=== PATIENT | female | born 1970 | race American Indian/Alaskan Native ===

== ENCOUNTER 2017-01-15 19:22 | Emergency (ER) | payer OTHER ==
[2017-01-15 19:29] VITALS: TEMP 98; BMI 22.6
[2017-01-15] MEDS ORDERED: DiphenhydrAMINE 50 mg/ml Inj IVP ONE (19:51)
[2017-01-15] MEDS ORDERED: Sodium Chloride 0.9% 1,000 ML IV SCH (20:00)
--- NOTE | 2017-01-15 21:04 | CT ---
EXAM: CT Head Without Intravenous Contrast CLINICAL HISTORY: 46 years old, female; Pain; Headache; Headache not specified; Additional info: DEAN TECHNIQUE: Axial computed tomography images of the head/brain without intravenous contrast. This CT exam was performed using one or more of the following dose reduction techniques: automated exposure control, adjustment of the mA and/or kV according to patient size, and/or use of iterative reconstruction technique. COMPARISON: No relevant prior studies available. FINDINGS: Brain: No intracranial hemorrhage. No mass. No definite edema. Ventricles: No hydrocephalus. Bones/joints: No acute fracture. Soft tissues: Unremarkable. Sinuses: No acute sinusitis. Mastoid air cells: No mastoid effusion. Orbits: Unremarkable as visualized. IMPRESSION: 1. No acute intracranial abnormality. 2. Incidental/non-acute findings are described above.
--- NOTE | 2017-01-15 21:06 | ED PDOC ---
Arrival/HPI - General Chief Complaint: Headache Time Seen by Provider: 01/15/17 19:31 - History of Present Illness Narrative History of Present Illness (Text): 01/15/17 19:50 Cathy Hager is a 46 year old female, whose past medical history includes migraines and COPD, who presents to the Emergency department complaining of migraines. Patient states she has been experiencing a frontal headaches, consistent with previous migraines, with associated nausea today. Patient denies any dizziness, vision changes, focal neurological deficits, fever, chills , chest pain, shortness of breath, vomiting, diarrhea, back pain, neck pain/ stiffness, or any other complaints. Patient also complaining of urinary frequency. Symptom Onset: Gradual Symptom Course: Unchanged Activities at Onset: Rest, Light Context: Home Past Medical History - Provider Review Nursing Documentation Reviewed: Yes - Infectious Disease Hx of Infectious Diseases: None - Tetanus Immunization Tetanus Immunization: Unknown - Cardiac Hx Hypertension: No - Pulmonary Hx Bronchitis: Yes - Neurological Hx Migraine: Yes Hx Transient Ischemic Attacks (TIA): Yes (2008, resulting in chronic right leg weakness) - Renal Hx Renal Disorder: No - Endocrine/Metabolic Hx Diabetes Mellitus Type 1: No Hx Diabetes Mellitus Type 2: No - Hematological/Oncological Hx Anemia: Yes - Integumentary Other/Comment: Skin rash. - Musculoskeletal/Rheumatological Hx Back Pain: Yes Other/Comment: Positive chronic RLE weakness - Gastrointestinal Hx Gastroesophageal Reflux: Yes (Roman's esophagus secondary to GERD) Other/Comment: Positive hernia - Genitourinary/Gynecological Hx Genitourinary Disorders: No - Psychiatric Hx Psychophysiologic Disorder: Yes Hx Anxiety: Yes Hx Depression: Yes Hx Substance Use: No - Surgical History Hx Tubal Ligation: Yes Other/Comment: reverse of tubal ligation - Anesthesia Hx Anesthesia: No Hx Anesthesia Reactions: No Hx Malignant Hyperthermia: No - Suicidal Assessment Feels Threatened In Home Enviroment: No Family/Social History - Physician Review Nursing Documentation Reviewed: Yes Family/Social History: No Known Family HX Smoking Status: Never Smoked Hx Alcohol Use: No Hx Substance Use: No Allergies/Home Meds Allergies/Adverse Reactions: Allergies carisoprodol Allergy (Verified 01/17/16 19:26) ANAPHYLAXIS ketorolac Allergy (Verified 01/17/16 19:26) ANAPHYLAXIS lactose Allergy (Verified 01/17/16 19:26) VOMITING Sulfa (Sulfonamide Antibiotics) Allergy (Verified 01/17/16 19:26) ANAPHYLAXIS Home Medications: Home Meds Medication Instructions Recorded Confirmed Albuterol/Ipratropium [Duoneb 3 3 ml IH 03/10/15 03/10/15 mg/0.5 mg (3 ml) UD] Loperamide Hydrochloride 2 mg PO 03/10/15 03/10/15 [Loperamide] Omeprazole 40 mg PO 03/10/15 03/10/15 Ondansetron 8 mg PO 03/10/15 03/10/15 Review of Systems - Physician Review All systems were reviewed & negative as marked: Yes - Review of Systems Constitutional: Normal. absent: Fevers Eyes: Normal ENT: Normal Respiratory: Normal. absent: SOB, Cough Cardiovascular: Normal. absent: Chest Pain Gastrointestinal: Nausea. absent: Abdominal Pain, Diarrhea, Vomiting Genitourinary Female: Frequency. absent: Dysuria, Hematuria, Urine Output Changes Musculoskeletal: Normal. absent: Back Pain, Neck Pain Skin: Normal. absent: Rash Neurological: Headache. absent: Dizziness Endocrine: Normal Hemo/Lymphatic: Normal Psychiatric: Normal Physical Exam Vital Signs Reviewed: Yes Vital Signs Temp Pulse Resp BP Pulse Ox 01/15/17 21:37 66 19 107/70 100 01/15/17 19:27 98.0 F 77 16 113/79 99 Temperature: Afebrile Blood Pressure: Normal Pulse: Regular Respiratory Rate: Normal Appearance: Positive for: Well-Appearing, Non-Toxic, Comfortable Pain Distress: None Mental Status: Positive for: Alert and Oriented X 3 - Systems Exam Head: Present: Atraumatic, Normocephalic Pupils: Present: PERRL Extroacular Muscles: Present: EOMI Conjunctiva: Present: Normal Mouth: Present: Moist Mucous Membranes Neck: Present: Normal Range of Motion Respiratory/Chest: Present: Clear to Auscultation, Good Air Exchange. No: Respiratory Distress, Accessory Muscle Use Cardiovascular: Present: Regular Rate and Rhythm, Normal S1, S2. No: Murmurs Abdomen: Present: Normal Bowel Sounds. No: Tenderness, Distention, Peritoneal Signs Upper Extremity: Present: Normal Inspection. No: Cyanosis, Edema Lower Extremity: Present: Normal Inspection. No: Edema Neurological: Present: GCS=15, CN II-XII Intact, Speech Normal, Motor Func Grossly Intact, Normal Sensory Function, Normal Cerebellar Funct, Gait Normal, Memory Normal Skin: Present: Warm, Dry, Normal Color. No: Rashes Psychiatric: Present: Alert, Oriented x 3, Normal Insight, Normal Concentration Medical Decision Making ED Course and Treatment: 01/15/17 19:50 Impression: 46 year old female complaining of migraine frontal headache, nausea, and urinary frequency. Differential Diagnosis include but are not limited to: migraine vs. UTI Plan: -- CT Head w/o contrast -- Urinalysis -- IV fluids -- Reglan -- Solu-medrol -- Benadryl -- Reassess and disposition Prior Visits: Notes and results from previous visits were reviewed. On 01/17/2017, pt was seen in the Emergency department for abdominal pain. Pt was admitted to the hospital for further evaluation. Progress Notes: 01/15/17 21:19 Reviewed radiology, CT Head shows: 1. No acute intracranial abnormality. 2. Incidental/non-acute findings are described above. 01/15/17 22:30 On re-evaluation, the patient feels better and is in no acute distress. I have discussed the results and plan with the patient, who expresses understanding. Patient in agreement with plan to discharged home. Patient is stable for discharge. Patient was instructed to follow up with physician/clinic in 1-2 days or return if symptoms worsen or new concerning symptoms arise. - Lab Interpretations Lab Results: Lab Results 01/15/17 20:05: Urine Color Yellow, Urine Appearance Clear, Urine pH 6.0, Ur Specific [place] >= 1.030, Urine Protein Trace H, Urine Glucose (UA) Negative, Urine Ketones Trace H, Urine Blood Small H, Urine Nitrate Negative, Urine Bilirubin Negative, Urine Urobilinogen 1.0 H, Ur Leukocyte Esterase Negative, Urine RBC 10 - 15, Urine WBC 2 - 5, Ur Epithelial Cells 3 - 4, Urine Bacteria Many I have reviewed the lab results: Yes - RAD Interpretation Narrative RAD Interpretations (Text): CT Head shows: Brain: No intracranial hemorrhage. No mass. No definite edema. Ventricles: No hydrocephalus. Bones/joints: No acute fracture. Soft tissues: Unremarkable. Sinuses: No acute sinusitis. Mastoid air cells: No mastoid effusion. Orbits: Unremarkable as visualized. IMPRESSION: 1. No acute intracranial abnormality. 2. Incidental/non-acute findings are described above. Radiology Orders: 01/15/17 19:52 HEAD W/O CONTRAST [CT] Stat Tow Car Driver: Radiologist - Medication Orders Current Medication Orders: Discontinued Medications Cephalexin Monohydrate (Keflex) 500 mg PO STAT STA PRN Reason: Protocol Stop: 01/15/17 22:15 Last Admin: 01/15/17 22:31 Dose: 500 mg Diphenhydramine HCl (Benadryl) 25 mg IVP ONCE ONE Stop: 01/15/17 19:52 Last Admin: 01/15/17 20:16 Dose: 25 mg Sodium Chloride (Sodium Chloride 0.9%) 1,000 mls @ 80 mls/hr IV .[id number] ODETTE Last Admin: 01/15/17 20:16 Dose: 80 mls/hr Methylprednisolone (Solu-Medrol) 125 mg IVP ONCE ONE Stop: 01/15/17 19:52 Last Admin: 01/15/17 20:16 Dose: 125 mg Metoclopramide HCl (Reglan) 10 mg IVP ONCE ONE Stop: 01/15/17 19:52 Last Admin: 01/15/17 20:16 Dose: 10 mg - Scribe Statement The provider has reviewed the documentation as recorded by the Froylanibazeem Monroe All medical record entries made by the [place] were at my direction and personally dictated by me. I have reviewed the chart and agree that the record accurately reflects my personal performance of the history, physical exam, medical decision making, and the department course for this patient. I have also personally directed, reviewed, and agree with the discharge instructions and disposition. Disposition/Present on Arrival - Present on Arrival Any Indicators Present on Arrival: No History of DVT/PE: Yes History of Uncontrolled Diabetes: Yes Urinary Catheter: Yes History of Decub. Ulcer: No History Surgical Site Infection Following: None - Disposition Have Diagnosis and Disposition been Completed?: Yes Diagnosis: Headache, Urinary tract infection Disposition: HOME/ ROUTINE Disposition Time: 22:30 Condition: GOOD Discharge Instructions (ExitCare): Urinary Tract Infection in Women (ED), Migraine Headache (ED) Prescriptions: Cephalexin [Keflex] 500 mg PO BID #14 capsule Referrals: Edi Klein MD [Primary Care Provider] - Follow up with primary
[2017-01-15 21:26] LABS: URINE BILIRUBIN NEGATIVE (NEGATIVE); URINE BLOOD SMALL (NEGATIVE); URINE GLUCOSE (UA) NEGATIVE (NEGATIVE); URINE KETONE TRACE mg/dL (NEGATIVE); URINE LEUKOCYTE ESTERASE NEGATIVE Leu/uL (NEGATIVE); URINE PROTEIN TRACE mg/dL (<30 mg/dL)
[2017-01-15 21:35] LABS: URINE APPEARANCE CLEAR (CLEAR); URINE COLOR YELLOW (YELLOW)
[2017-01-15 21:41] VITALS: BP 107/70; PULSE 66; RESP 19; O2SAT 100
[2017-01-15 22:06] LABS: URINE BACTERIA MANY (NEG)
== END 2017-01-15 22:31 | disposition home or self-care (01) ==
LOC: ED 19:22
DX: R51 Headache (principal); N39.0 Urinary tract infection, site not specified; Z86.73 Personal history of transient ischemic attack (TIA), and cerebral infarction without residual deficits
CPT/HCPCS: 70450; 81001; 96374; 96375; 99285; J1200; J2765; J2930; J7040